=== PATIENT | male | born 1965 | race African-American/Black ===

== ENCOUNTER 2016-07-12 10:41 | Day surgery (SDC) | payer BC ==
[~2016-07-12 10:41] MED LIST: Lactated Ringers 1,000 ML IV SCH; Midazolam 1 MG/ML 2 ML SDV ONE; Propofol 200 MG/20 ML SDV ONE; fentaNYL 100 MCG/2 ML SDV ONE
--- NOTE | 2016-07-12 11:26 | PCM.PREANE ---
Preanesthetic Assessment - Anesthesia/Transfusion/Family Hx Anesthesia History: Prior Anesthesia Without Reaction Transfusion History: No Prior Transfusion(s) - Review of Systems General: No Symptoms Pulmonary: No Symptoms Cardiovascular: No Symptoms Gastrointestinal: No symptoms Neurological: No Symptoms Other: Reports: None - Physical Assessment NPO Status Date: 07/11/16 O2 Sat by Pulse Oximetry: 98 Respiratory Rate: 16 Vital Signs: Last Vital Signs Temp 97.2 C H 07/12/16 11:21 Pulse 56 L 07/12/16 11:21 Resp 16 07/12/16 11:21 BP 131/80 07/12/16 11:21 Pulse Ox 98 07/12/16 11:21 Height: 1.7 m Weight: 86.636 kg ASA Class: 2 Mental Status: Alert & Oriented x3 Airway Class: Mallampati = 1 Dentition: Reports: Normal Dentition ROM/Head Extension: Full Lungs: Clear to auscultation Cardiovascular: Regular Rate - Allergies Allergies/Adverse Reactions: Allergies Allergy/AdvReac Type Severity Reaction Status Date / Time acetaminophen Allergy muscle pain Verified 05/10/16 11:19 pollen extracts Allergy Sneezing Verified 05/10/16 11:19 dust Allergy Sneezing Uncoded 05/10/16 11:19 - Anesthesia Plan Pre-Op Medication Ordered: None - Acknowledgements Anesthesia Type Planned: MAC Pt an Appropriate Candidate for the Planned Anesthesia: Yes Alternatives and Risks of Anesthesia Discussed w Pt/Guardian: Yes Pt/Guardian Understands and Agrees with Anesthesia Plan: Yes PreAnesthesia Questionnaire - Past Health History Medical/Surgical History: Denies Medical/Surgical History HEENT History: Reports: Allergic rhinitis Cardiovascular History: Reports: Cardiomyopathy Other Cardiovascular History: "irregular heartbeat" Respiratory History: Reports: Bronchitis, recurrent Gastrointestinal History: Reports: GERD Musculoskeletal History: Reports: Back pain, chronic Hematologic History: Reports: Anemia - Infectious Disease History Infectious Disease History: Reports: Chicken pox - Past Surgical History Respiratory Surgical History: Reports: None - SUBSTANCE USE Smoking Status *Q: Never Smoker Days Per Week of Alcohol Use: 1 Number of Drinks Per Day: 2 Total Drinks Per Week: 2 Recreational Drug Use History: No Recreational Drug Type: Reports: Marijuana/Hashish - HOME MEDS Home Medications: Home Meds Sucralfate 1 tab PO TID 07/09/16 [History] - CURRENT (IN HOUSE) MEDS Current Meds: Current Medications Lactated Ringer's (Ringers, Lactated) 1,000 mls @ 125 mls/hr IV ASDIRECTED AMAN Discontinued Medications Fentanyl (Sublimaze) Confirm Administered Dose 100 mcg .ROUTE .STK-MED ONE Stop: 07/12/16 07:28 Midazolam HCl (Versed 1 Mg/Ml) Confirm Administered Dose 2 mg .ROUTE .STK-MED ONE Stop: 07/12/16 07:28 Propofol (Diprivan 20 Ml) Confirm Administered Dose 200 mg .ROUTE .STK-MED ONE Stop: 07/12/16 07:28 Preanesthetic Assessment - ANESTHESIA/TRANSFUSION/FAMILY HX Family History of Anesthesia Reaction: No - PHYSICAL ASSESSMENT O2 Sat by Pulse Oximetry: 98 RR: 16 Vital Signs: Last Vital Signs Temp 97.2 C H 07/12/16 11:21 Pulse 56 L 07/12/16 11:21 Resp 16 07/12/16 11:21 BP 131/80 07/12/16 11:21 Pulse Ox 98 07/12/16 11:21 Height: 1.7 m Weight: 86.636 kg - ALLERGIES Allergies/Adverse Reactions: Allergies Allergy/AdvReac Type Severity Reaction Status Date / Time acetaminophen Allergy muscle pain Verified 05/10/16 11:19 pollen extracts Allergy Sneezing Verified 05/10/16 11:19 dust Allergy Sneezing Uncoded 05/10/16 11:19
[2016-07-12] MEDS ORDERED: Propofol 200 MG/20 ML SDV ONE ×2 (11:41→12:13)
--- NOTE | 2016-07-12 12:40 | PCM.OPNOTE ---
- General Post-Op/Procedure Note Date of Surgery/Procedure: 07/12/16 Operative Procedure(s): EGD w/ biopsy. Colonoscopy Pre Op Diagnosis: Abdominal pain. Heartburn. Desire for colorectal cancer screening. Post-Op Diagnosis: Gastritis. No colonic neioplasia. Anesthesia Technique: MAC (ASA II) Primary Surgeon: Esequiel Brooks Condition: Good Free Text/Narrative:: Dictation [id number], and [id number]
[2016-07-12] MEDS ORDERED: Lactated Ringers 1,000 ML IV SCH (12:45)
--- NOTE | 2016-07-12 12:51 | PCM.POSTAN ---
POST ANESTHESIA ASSESSMENT - MENTAL STATUS Mental Status: alert, oriented - RESPIRATORY Respiratory Status: respiratory rate WNL, airway patent - CARDIOVASCULAR CV Status: pulse rate WNL, blood pressure stable - GASTROINTESTINAL GI Status: no symptoms - POST OP HYDRATION Hydration Status: adequate & stable
[2016-07-12 12:58] VITALS: BP 124/82
--- NOTE | 2016-07-12 13:33 | PCM48HPAN ---
Post Anesthesia Note - EVALUATION WITHIN 48HRS OF ANESTHETIC Vital Signs in Normal Range: Yes Patient Participated in Evaluation: Yes Respiratory Function Stable: Yes Airway Patent: Yes Cardiovascular Function Stable: Yes Hydration Status Stable: Yes Pain Control Satisfactory: Yes Nausea and Vomiting Control Satisfactory: Yes Mental Status Recovered: Yes
--- NOTE | 2016-07-12 18:30 | OR ---
SURGEON: Esequiel Brooks M.D. DATE OF PROCEDURE: 07/12/2016 OPERATION PERFORMED: Esophagogastroduodenoscopy with biopsy. ANESTHESIA: MAC. ASA CLASSIFICATION: II. PREOPERATIVE DIAGNOSIS: Chronic heartburn with epigastric pain. POSTOPERATIVE DIAGNOSIS: Gastritis. DESCRIPTION OF PROCEDURE: The patient was taken to the endoscopy room and positioned on the endoscopy table in the supine position. Time-out was called for appropriate identification of the patient and procedure. Monitored anesthesia care was provided. The bite-block was placed between the patient's teeth. The gastroscope was inserted through the bite-block and advanced without difficulty through the esophagus and stomach into the duodenum, where examination was carried out in a retrograde fashion. The duodenum shows no acute inflammatory changes or ulcerations. Stomach shows a mild gastritis. Antral biopsies were obtained to look for the presence of Helicobacter pylori. The gastroscope was retroflexed to visualize the proximal stomach which also shows moderate gastritis just below the GE junction. Separate biopsies of this area were obtained. The gastroscope was then straightened and slowly withdrawn carefully visualizing the greater and lesser curvatures. The stomach was aspirated as the scope was withdrawn. GE junction was well defined and shows no acute inflammatory changes. The esophagus demonstrated good contractility. No vocal cord lesions were identified as the scope was withdrawn. The gastroscope was then removed with the patient having tolerated the procedure well. Following colonoscopy, he was taken to recovery room. SEE MORA /[id number]
--- NOTE | 2016-07-12 18:42 | OR ---
SURGEON: Esequiel Brooks M.D. DATE OF PROCEDURE: 07/12/2016 OPERATION PERFORMED: Colonoscopy. ANESTHESIA: MAC. ASA CLASSIFICATION: II. PREOPERATIVE DIAGNOSIS: Desire for colorectal cancer screening. POSTOPERATIVE DIAGNOSIS: No evidence of neoplasia. DESCRIPTION OF PROCEDURE: With the patient having completed esophagogastroduodenoscopy, he was now positioned in the left lateral decubitus position. The colonoscope was inserted into the rectum and advanced with moderate difficulty to the cecum, where I was able to retroflex the colonoscope and visualize the ascending colon from below. The colonoscope was straightened and slowly withdrawn. The cecum, ascending colon, hepatic flexure, transverse colon, splenic flexure, and descending colon showed no tumors, polyps, diverticula, or evidence of angiodysplasia. Sigmoid colon demonstrates no diverticula. The colonoscope was withdrawn to the rectum and retroflexed to visualize the anal orifice from above. No tumors or polyps were seen and there were no acute hemorrhoidal changes. The patient tolerated the procedure well and was taken to recovery room in stable condition. SEE MORA /[id number]
== END 2016-07-12 14:15 | disposition home or self-care (01) ==
LOC: MW.SDS 10:41
PROVIDERS: ATTEND Surgery
PROC: 0DB68ZZ Excision of Stomach, Via Natural or Artificial Opening Endoscopic (ICD-10-PCS; principal; 2016-07-12)
PROC: 0DJD8ZZ Inspection of Lower Intestinal Tract, Via Natural or Artificial Opening Endoscopic (ICD-10-PCS; 2016-07-12)
DX: K29.50 Unspecified chronic gastritis without bleeding (principal); Z12.11 Encounter for screening for malignant neoplasm of colon; K21.9 Gastro-esophageal reflux disease without esophagitis; M62.08 Separation of muscle (nontraumatic), other site; Z87.891 Personal history of nicotine dependence
CPT/HCPCS: 43239; 45378; 88305; 88312; J2250; J3010; J7120; 00740; J2704

== ENCOUNTER 2017-02-12 16:33 | Emergency (ER) | payer BC ==
[2017-02-12] MEDS ORDERED: Sodium Chloride 0.9% 1,000 ML IV ONE (17:42)
[2017-02-12] MEDS ORDERED: Ketorolac 30 MG/ML SDV IVPUSH ONE (17:42)
[2017-02-12] MEDS ORDERED: Ondansetron 4 MG/2 ML SDV IVPUSH ONE (17:42)
--- NOTE | 2017-02-12 17:44 | EDM.PDOC ---
ED HPI GENERAL MEDICAL PROBLEM - General Chief Complaint: Gastrointestinal Problem Stated Complaint: STOMACH PAIN/VOMITING/HEADACHE Time Seen by Provider: 02/12/17 17:30 Source of Information: Reports: Patient History Limitations: Reports: No Limitations - History of Present Illness INITIAL COMMENTS - FREE TEXT/NARRATIVE: HISTORY AND PHYSICAL: History of present illness: [Patient comes to the emergency room complaining of nausea and vomiting and loose stools which began this morning. He feels very fatigued and has been unable to keep down any food and fluids today. He complains of a mild headache across the front of his forehead. He has not taken any medication for this. He denies muscle aches and pains. No pain in his neck. Denies fever and chills. No abdominal pain or difficulty urinating. No blood in his stools.] Review of systems: As per history of present illness and below otherwise all systems reviewed and negative. Past medical history: As per history of present illness and as reviewed below otherwise noncontributory. Surgical history: As per history of present illness and as reviewed below otherwise noncontributory. Social history: No reported history of drug or alcohol abuse. Family history: As per history of present illness and as reviewed below otherwise noncontributory. Physical exam: Gen.: Well-developed well-nourished dark skinned male in no acute distress. He is afebrile. VS are reviewed by me. HEENT: Atraumatic, normocephalic. Oral mucous membranes are pink and moist. TMs are pearly ortega and without effusion. Nares are patent. Neck supple, no lymphadenopathy. Lungs: Clear to auscultation, breath sounds equal bilaterally. Heart: S1S2, regular rate and rhythm. Abdomen: Bowel sounds are normoactive throughout. Abdomen is soft, nondistended , nontender. Negative for costovertebral tenderness. Pelvis: Stable nontender. Genitourinary: Deferred. Rectal: Deferred. Extremities: Atraumatic. Neurovascular unremarkable. Neuro: Awake, alert, oriented. Motor and sensory unremarkable throughout. Exam nonfocal. Therapeutics: [1 L normal saline, Toradol 30 mg IV, Zofran 4 mg IV] Impression: [Nausea and vomiting] Plan: [Patient's symptoms improved significantly after 1 L normal saline and medications. He requests to be discharged from the ER. He feels hungry and is ready to go home and go to bed. He has no concerns or further complaints upon discharge.] Definitive disposition and diagnosis as appropriate pending reevaluation and review of above. - Related Data Allergies Allergy/AdvReac Type Severity Reaction Status Date / Time pollen extracts Allergy Sneezing Verified 02/12/17 17:14 dust Allergy Sneezing Uncoded 05/10/16 11:19 Home Meds: Home Meds . [No Known Home Meds] 02/12/17 [History] Past Medical History - Past Health History Medical/Surgical History: Denies Medical/Surgical History HEENT History: Reports: Allergic Rhinitis Cardiovascular History: Reports: Arrhythmia Other Cardiovascular History: "irregular heartbeat" Respiratory History: Reports: Bronchitis, Recurrent Gastrointestinal History: Reports: GERD Musculoskeletal History: Reports: Back Pain, Chronic Hematologic History: Reports: Anemia - Infectious Disease History Infectious Disease History: Reports: Chicken Pox - Past Surgical History Head Surgeries/Procedures: Reports: None Cardiovascular Surgical History: Reports: Other (See Below) Social & Family History - Family History Family Medical History: Noncontributory - Tobacco Use Smoking Status *Q: Never Smoker - Caffeine Use Caffeine Use: Reports: None Caffeine Use Comment: 1drink occasionally - Alcohol Use Days Per Week of Alcohol Use: 1 Number of Drinks Per Day: 2 Total Drinks Per Week: 2 - Recreational Drug Use Recreational Drug Use: Yes Drug Use in Last 12 Months: Yes Recreational Drug Type: Reports: Marijuana/Hashish Recreational Drug Use Frequency: Socially ED ROS GENERAL - Review of Systems Review Of Systems: ROS reveals no pertinent complaints other than HPI. ED EXAM, GI/ABD - Physical Exam Exam: See Below Course - Vital Signs Last Recorded V/S: Last Vital Signs Temp 97.9 F 02/12/17 17:09 Pulse 78 02/12/17 17:09 Resp 18 02/12/17 17:09 BP 129/78 02/12/17 17:09 Pulse Ox 97 02/12/17 17:09 - Orders/Labs/Meds Meds: Medications Discontinued Medications Generic Name Dose Route Start Last Admin Trade Name Freq PRN Reason Stop Dose Admin Sodium Chloride 1,000 mls @ 999 mls/hr 02/12/17 17:42 02/12/17 18:07 Normal Saline IV 02/12/17 18:42 999 mls/hr STAT ONE Administration Ketorolac Tromethamine 30 mg 02/12/17 17:42 02/12/17 18:10 Toradol IVPUSH 02/12/17 17:43 30 mg ONETIME ONE Administration Ondansetron HCl 4 mg 02/12/17 17:42 02/12/17 18:08 Zofran IVPUSH 02/12/17 17:43 4 mg ONETIME ONE Administration Departure - Departure Time of Disposition: 19:20 Disposition: Home, Self-Care 01 Condition: Good Clinical Impression: Nausea & vomiting - Discharge Information Referrals: Bogdan Becerra MD [Primary Care Provider] - Forms: ED Department Discharge Additional Instructions: The following information is given to patients seen in the emergency department who are being discharged to home. This information is to outline your options for follow-up care. We provide all patients seen in our emergency department with a follow-up referral. The need for follow-up, as well as the timing and circumstances, are variable depending upon the specifics of your emergency department visit. If you don't have a primary care physician on staff, we will provide you with a referral. We always advise you to contact your personal physician following an emergency department visit to inform them of the circumstance of the visit and for follow-up with them and/or the need for any referrals to a consulting specialist. The emergency department will also refer you to a specialist when appropriate. This referral assures that you have the opportunity for follow-up care with a specialist. All of these measure are taken in an effort to provide you with optimal care, which includes your follow-up. Under all circumstances we always encourage you to contact your private physician who remains a resource for coordinating your care. When calling for follow-up care, please make the office aware that this follow-up is from your recent emergency room visit. If for any reason you are refused follow-up, please contact the [facility] emergency department at and asked to speak to the emergency department charge nurse. [facility] [address] [place] [id number] Establish care with a local provider at the clinic listed above. Push fluids, get plenty of rest. Return to ER as needed as discussed.
[2017-02-12 20:01] VITALS: BP 118/67
== END 2017-02-12 19:34 | disposition home or self-care (01) ==
LOC: MW.ED 16:33
DX: R11.2 Nausea with vomiting, unspecified (principal); Z86.2 Personal history of diseases of the blood and blood-forming organs and certain disorders involving the immune mechanism; Z91.048 Other nonmedicinal substance allergy status
CPT/HCPCS: 96361; 96374; 96375; 99284; J1885; J2405; J7040; 99283

== ENCOUNTER 2017-07-18 08:47 | Day surgery (SDC) | payer BC ==
--- NOTE | 2017-07-18 09:13 | PCM.PREANE ---
Preanesthetic Assessment - Anesthesia/Transfusion/Family Hx Anesthesia History: Prior Anesthesia Without Reaction Family History of Anesthesia Reaction: No Transfusion History: No Prior Transfusion(s) Intubation History: Unknown - Review of Systems General: No Symptoms Pulmonary: No Symptoms Cardiovascular: No Symptoms Gastrointestinal: Abdominal Pain Neurological: No Symptoms Other: Reports: None - Physical Assessment Height: 1.7 m Weight: 78.471 kg ASA Class: 2 Mental Status: Alert & Oriented x3 Airway Class: Mallampati = 2 Dentition: Reports: Normal Dentition (multiple veneers front (upper and lower)) Thyro-Mental Finger Breadths: 3 Mouth Opening Finger Breadths: 3 ROM/Head Extension: Full Lungs: Clear to Auscultation, Normal Respiratory Effort Cardiovascular: Regular Rate, Regular Rhythm - Allergies Allergies/Adverse Reactions: Allergies Allergy/AdvReac Type Severity Reaction Status Date / Time acetaminophen Allergy "muscle Verified 07/16/17 08:15 problems" pollen extracts Allergy Sneezing Verified 02/12/17 17:14 dust Allergy Sneezing Uncoded 05/10/16 11:19 - Blood Blood Available: No - Anesthesia Plan Pre-Op Medication Ordered: None - Acknowledgements Anesthesia Type Planned: MAC Pt an Appropriate Candidate for the Planned Anesthesia: Yes Alternatives and Risks of Anesthesia Discussed w Pt/Guardian: Yes Pt/Guardian Understands and Agrees with Anesthesia Plan: Yes PreAnesthesia Questionnaire - Past Health History Medical/Surgical History: Denies Medical/Surgical History HEENT History: Reports: Allergic Rhinitis Cardiovascular History: Reports: Arrhythmia, Other (See Below) (h/o CHF in possibly sec. to virral infection- noresidual disability from it) Other Cardiovascular History: "irregular heartbeat" Respiratory History: Reports: Bronchitis, Recurrent Gastrointestinal History: Reports: GERD Musculoskeletal History: Reports: Other (See Below) Other Musculoskeletal History: occasional back pain Neurological History: Reports: Migraines Hematologic History: Reports: Anemia - Infectious Disease History Infectious Disease History: Reports: Chicken Pox - Past Surgical History Head Surgeries/Procedures: Reports: None Cardiovascular Surgical History: Reports: Other (See Below) Other Cardiovascular Surgeries/Procedures: hx of coronary angiography without concomitant left heart catheterization Respiratory Surgical History: Reports: None GI Surgical History: Reports: Colonoscopy, EGD (over a year ago) - SUBSTANCE USE Smoking Status *Q: Former Smoker (quit in ) Days Per Week of Alcohol Use: 1 Number of Drinks Per Day: 2 Total Drinks Per Week: 2 Recreational Drug Use History: Yes Recreational Drug Type: Reports: Marijuana/Hashish - HOME MEDS Home Medications: Home Meds Loratadine [Claritin] 1 tab PO ASDIRECTED PRN 07/16/17 [History] Phenyleph/Pramoxin/Glycr/w.Pet [Hemorrhoidal Cream] 1 applic RECTAL ASDIRECTED 07/16/17 [History]
[2017-07-18] MEDS ORDERED: Lactated Ringers 1,000 ML IV SCH ×2 (09:45→11:00)
[2017-07-18] MEDS ORDERED: Lidocaine 2% 5 ML SDV ONE ×2 (10:17→10:20)
[2017-07-18] MEDS ORDERED: Propofol 200 MG/20 ML SDV ONE ×2 (10:17→10:34)
[2017-07-18] MEDS ORDERED: Midazolam 1 MG/ML 2 ML SDV ONE (10:17)
--- NOTE | 2017-07-18 10:50 | PCM.OPNOTE ---
- General Post-Op/Procedure Note Date of Surgery/Procedure: 07/18/17 Operative Procedure(s): Esophagogastroduodenoscopy with biopsy Pre Op Diagnosis: Progressive epigastric pain Post-Op Diagnosis: Acute gastritis with superficial ulcerations Anesthesia Technique: MAC (ASA II) Primary Surgeon: Esequiel Brooks Quantitative Analyst Marketing: Nic Clancy Condition: Good Free Text/Narrative:: Dictation [id number] CPT CODE 19852
--- NOTE | 2017-07-18 11:11 | PCM.POSTAN ---
POST ANESTHESIA ASSESSMENT - MENTAL STATUS Mental Status: Alert, Oriented - RESPIRATORY Respiratory Status: Respiratory Rate WNL, Airway Patent, O2 Saturation Stable - CARDIOVASCULAR CV Status: Pulse Rate WNL, Blood Pressure Stable - GASTROINTESTINAL GI Status: No Symptoms - POST OP HYDRATION Hydration Status: Adequate & Stable
--- NOTE | 2017-07-18 11:25 | PCM48HPAN ---
Post Anesthesia Note - EVALUATION WITHIN 48HRS OF ANESTHETIC Vital Signs in Normal Range: Yes Patient Participated in Evaluation: Yes Respiratory Function Stable: Yes Airway Patent: Yes Cardiovascular Function Stable: Yes Hydration Status Stable: Yes Pain Control Satisfactory: Yes Nausea and Vomiting Control Satisfactory: Yes Mental Status Recovered: Yes Resp Rate: 13 - COMMENTS/OBSERVATIONS Free Text/Narrative:: no anesthesia problems
--- NOTE | 2017-07-18 12:43 | OR ---
SURGEON: Esequiel Brooks M.D. DATE OF PROCEDURE: 07/18/2017 OPERATION PERFORMED: Esophagogastroduodenoscopy with biopsy. ROOM SERVICE SUPERVISOR: Dr. Clancy, PGY-2. ANESTHESIA: MAC. ASA CLASSIFICATION: II. PREOPERATIVE DIAGNOSIS: Progressive epigastric pain with heartburn. POSTOPERATIVE DIAGNOSIS: Acute gastritis with superficial gastric ulcers. DESCRIPTION OF PROCEDURE: The patient was taken to the endoscopy room and positioned on the endoscopy table in the supine position. Time-out was called for appropriate identification of the patient and procedure. Monitored anesthesia care was provided. A bite block was placed between the patient's teeth. The gastroscope was inserted through the bite block into the oropharynx and advanced without difficulty through the esophagus and stomach into the duodenum where examination was carried out in a retrograde fashion. The duodenum shows no acute inflammatory changes, ulcerations, or bleeding. Stomach showed a mild-to- moderate gastritis. Multiple superficial ulcers were noted. No deep ulcer craters are noted. There was no acute bleeding. Antral biopsies were obtained to look for the presence of Helicobacter pylori. The gastroscope was then retroflexed to visualize the proximal stomach. No lesions were identified proximally. GE junction was well defined, shows no acute inflammatory changes or hiatal hernia. The esophagus demonstrated good contractility. No mid or proximal lesions were identified. The vocal cords were briefly visualized as the scope was withdrawn and noted to move symmetrically. The patient tolerated the procedure well and was taken to recovery room in stable condition. SEE / ABBY /[id number]
[2017-07-18 12:46] VITALS: BP 108/72
== END 2017-07-18 11:45 | disposition home or self-care (01) ==
LOC: MW.SDS 08:47
PROVIDERS: ATTEND Surgery
DX: K25.9 Gastric ulcer, unspecified as acute or chronic, without hemorrhage or perforation (principal); K29.50 Unspecified chronic gastritis without bleeding; Z88.8 Allergy status to other drugs, medicaments and biological substances; K21.9 Gastro-esophageal reflux disease without esophagitis; Z87.891 Personal history of nicotine dependence; Z98.890 Other specified postprocedural states; Z79.899 Other long term (current) drug therapy
CPT/HCPCS: 43239; J2250; J7120; 00731; 88305; 88312; J2704

== ENCOUNTER 2017-10-11 15:28 | Emergency (ER) | payer BC ==
[2017-10-11 16:11] VITALS: BP 111/77
--- NOTE | 2017-10-11 17:16 | EDM.PDOC ---
ED HPI GENERAL MEDICAL PROBLEM - General Chief Complaint: Gastrointestinal Problem Stated Complaint: PT SPOKE TO NURSE Time Seen by Provider: 10/11/17 17:12 Source of Information: Reports: Patient History Limitations: Reports: No Limitations - History of Present Illness INITIAL COMMENTS - FREE TEXT/NARRATIVE: HISTORY AND PHYSICAL: []52-year-old gentleman presenting with 2 bouts of rectal bleeding today bright red History of Present Illness: []Patient has not had this problem before He does not have any pain Review of Systems: As per history of present illness and below otherwise all systems reviewed and negative. Past medical history: As per history of present illness and as reviewed below otherwise noncontributory. Surgical history: As per history of present illness and as reviewed below otherwise noncontributory. Social history: No reported history of drug or alcohol abuse. Family history: As per history of present illness and as reviewed below otherwise noncontributory. Physical exam: Alert and oriented answering questions appropriately in full sentences without any shortness of breath. He is nontoxic in appearance HEENT: Atraumatic, normocehpalic, pupils reactive, negative for conjunctival pallor or scleral icterus, mucous membranes moist, throat clear, neck supple, nontender, trachea midline. Lungs: Clear to auscultation, breath sounds equal bilaterally, chest non tender. Heart: S1S2, regular, negative for clicks, rubs, or JVD. Abdomen: Soft, nondistended, nontender. Negative for masses or hepatossplenmegaly. Negative for costovertebral tenderness. Pelvis: Stable nontender. Genitourinary: Deferred. Rectal: Small hemorrhoid is present not seen any blood from the hemorrhoid not inflamed. Digital exam did not identify any masses however stool was occult positive. Extremities: Atraumatic, negative for cords or calf pain. Neurovascular unremarkable. Neuro: Awake, alert, oriented. Cranial nerves II through XII unremarkable. Cerebellum unremarkable. Motor and sensory unremarkable throughout. Exam nonfocal. Diagnostics: []Occult card Therapeutics: [] Impression: []Rectal bleeding Plan: []Discharge Will need to follow-up with Dr. Brooks Return to the emergency department should symptoms worsen in their intensity or pain worsening as directed and discussed Definitive disposition and diagnosis as appropriate pending reevaluation and review of above. Onset: Today, Sudden - Related Data Allergies Allergy/AdvReac Type Severity Reaction Status Date / Time acetaminophen Allergy "muscle Verified 10/11/17 16:11 problems" pollen extracts Allergy Sneezing Verified 10/11/17 16:11 dust Allergy Sneezing Uncoded 10/11/17 16:11 Home Meds: Home Meds Loratadine [Claritin] 1 tab PO ASDIRECTED PRN 07/16/17 [History] Sucralfate 1 tab PO ASDIRECTED 10/11/17 [History] Past Medical History - Past Health History Medical/Surgical History: Denies Medical/Surgical History HEENT History: Reports: Allergic Rhinitis Cardiovascular History: Reports: Arrhythmia, Other (See Below) Other Cardiovascular History: "irregular heartbeat" Respiratory History: Reports: Bronchitis, Recurrent Gastrointestinal History: Reports: GERD Musculoskeletal History: Reports: Other (See Below) Other Musculoskeletal History: occasional back pain Neurological History: Reports: Migraines Hematologic History: Reports: Anemia - Infectious Disease History Infectious Disease History: Reports: Chicken Pox - Past Surgical History Head Surgeries/Procedures: Reports: None Cardiovascular Surgical History: Reports: Other (See Below) Other Cardiovascular Surgeries/Procedures: hx of coronary angiography without concomitant left heart catheterization Respiratory Surgical History: Reports: None GI Surgical History: Reports: Colonoscopy, EGD Social & Family History - Family History Family Medical History: Noncontributory - Tobacco Use Smoking Status *Q: Never Smoker - Caffeine Use Caffeine Use: Reports: None Caffeine Use Comment: 1drink occasionally - Recreational Drug Use Recreational Drug Use: No ED ROS GENERAL - Review of Systems Review Of Systems: ROS reveals no pertinent complaints other than HPI. ED EXAM, RENAL/ - Physical Exam Exam: See Below (See dictation) Course - Vital Signs Last Recorded V/S: Last Vital Signs Temp 36.2 C 10/11/17 16:07 Pulse 55 L 10/11/17 16:07 Resp 20 10/11/17 16:07 BP 111/77 10/11/17 16:07 Pulse Ox 99 10/11/17 16:07 Departure - Departure Time of Disposition: 17:14 Disposition: Home, Self-Care 01 Condition: Good Clinical Impression: Rectal bleed - Discharge Information Instructions: Rectal Bleeding, [id number] Referrals: PCP,None [Primary Care Provider] - Esequiel Brooks MD [Physician] - Additional Instructions: The following information is given to patients seen in the emergency department who are being discharged to home. This information is to outline your options for follow-up care. We provide all patients seen in our emergency department with a follow-up referral. The need for follow-up, as well as the timing and circumstances, are variable depending upon the specifics of your emergency department visit. If you don't have a primary care physician on staff, we will provide you with a referral. We always advise you to contact your personal physician following an emergency department visit to inform them of the circumstance of the visit and for follow-up with them and/or the need for any referrals to a consulting specialist. The emergency department will also refer you to a specialist when appropriate. This referral assures that you have the opportunity for followup care with a specialist. All of these measure are taken in an effort to provide you with optimal care, which includes your followup. Under all circumstances we always encourage you to contact your private physician who remains a resource for coordinating your care. When calling for followup care, please make the office aware that this follow-up is from your recent emergency room visit. If for any reason you are refused follow-up, please contact the [facility] emergency department at and asked to speak to the emergency department charge nurse. Discharge Will need to follow-up with Dr. Brooks Return to the emergency department should symptoms worsen in their intensity or pain worsening as directed and discussed
== END 2017-10-11 17:30 | disposition home or self-care (01) ==
LOC: MW.ED 15:28
DX: K62.5 Hemorrhage of anus and rectum (principal); Z88.8 Allergy status to other drugs, medicaments and biological substances
CPT/HCPCS: 99282

== ENCOUNTER 2019-04-29 13:44 | Emergency (ER) | payer BC ==
[2019-04-29] MEDS ORDERED: Azithromycin 100 MG/5 ML Susp 15 ML Bottle PO ONE (14:17)
[2019-04-29] MEDS ORDERED: cefTRIAXone 250 MG in Lidocaine 1% 1 ML IM ONE (14:17)
--- NOTE | 2019-04-29 14:21 | EDM.PDOC ---
ED [facility] GENERAL MEDICAL PROBLEM - General Chief Complaint: Genitourinary Problem Stated Complaint: UTI Time Seen by Provider: 04/29/19 14:19 Source of Information: Reports: Patient History Limitations: Reports: No Limitations - History of Present Illness INITIAL COMMENTS - FREE TEXT/NARRATIVE: Patient 54-year-old male with no significant past medical presenting with chief complaint of dysuria. Patient states he has had 2 weeks of dysuria which is gradually gotten worse. Patient states he noticed some discharge from his penis this morning and therefore came to the emergency department. Patient denies any fevers, chills, flank pain, blood in the urine. Patient reports being sexually active with 2 partners. Patient does not use protection. Patient has no other systemic symptoms and has no history of prior STI. In addition to that documented in the HPI above, the additional ROS was obtained : Constitutional: Denies fevers or chills Eyes: Denies vision changes ENMT: Denies sore throat CV: Denies chest pain Resp: Denies SOB GI: Denies vomiting or diarrhea : Denies painful urination MSK: Denies recent trauma Skin: Denies new rashes Neuro: Denies new numbness or tingling or weakness Endocrine: Denies unexpected weight loss Heme: Denies bleeding disorders I have reviewed the triage vital signs Const: Well nourished, well developed, appears stated age Eyes: PERRL, no conjunctival injection HENT: NCAT, Neck supple without meningismus CV: RRR, Warm, well-perfused extremities RESP: CTAB, Unlabored respiratory effort GI: soft, non-tender, non-distended, no masses MSK: No gross deformities appreciated : (KATY Cadet present) normal external exam. No testicular tenderness Skin: Warm, dry. No rashes Neuro: Alert, senior analyst programmer II-XII grossly intact. Sensation and motor function of extremities grossly intact. Psych: Appropriate mood and affect Assessment and plan: Patient 54-year-old male presenting with symptoms concerning for urethritis. Patient has risk factors for having sexual transmitted infections. Patient treated with azithromycin and ceftriaxone in the emergency department. Patient educated on safe sex practices. Patient given return precautions. All questions were asked and answered. Patient agrees to plan. - Related Data Allergies Allergy/AdvReac Type Severity Reaction Status Date / Time acetaminophen Allergy "muscle Verified 04/29/19 13:57 problems" pollen extracts Allergy Sneezing Verified 04/29/19 13:57 dust Allergy Sneezing Uncoded 04/29/19 13:57 Home Meds: Home Meds . [No Known Home Meds] 04/29/19 [History] Past Medical History - Past Health History Medical/Surgical History: Denies Medical/Surgical History HEENT History: Reports: Allergic Rhinitis Cardiovascular History: Reports: Arrhythmia, Other (See Below) Other Cardiovascular History: "irregular heartbeat" Respiratory History: Reports: Bronchitis, Recurrent Gastrointestinal History: Reports: GERD Musculoskeletal History: Reports: Other (See Below) Other Musculoskeletal History: occasional back pain Neurological History: Reports: Migraines Hematologic History: Reports: Anemia - Infectious Disease History Infectious Disease History: Reports: None - Past Surgical History Head Surgeries/Procedures: Reports: None Cardiovascular Surgical History: Reports: Other (See Below) Other Cardiovascular Surgeries/Procedures: hx of coronary angiography without concomitant left heart catheterization Respiratory Surgical History: Reports: None GI Surgical History: Reports: Colonoscopy, EGD Social & Family History - Family History Family Medical History: Noncontributory - Tobacco Use Smoking Status *Q: Never Smoker - Caffeine Use Caffeine Use: Reports: None Caffeine Use Comment: 1drink occasionally - Recreational Drug Use Recreational Drug Use: No ED ROS GENERAL - Review of Systems Review Of Systems: See Below ED EXAM, RENAL/ - Physical Exam Exam: See Below Course - Vital Signs Last Recorded V/S: Last Vital Signs Temp 36.6 C 04/29/19 13:58 Pulse 62 04/29/19 13:58 Resp 17 04/29/19 13:58 BP 121/66 04/29/19 13:58 Pulse Ox 97 04/29/19 13:58 - Orders/Labs/Meds Orders: Active Orders 24 hr Category Date Time Status CHLAMYDIA AND GONORRHEA BY TMA Stat Lab 04/29/19 14:16 Received CULTURE URINE [RM] Stat Lab 04/29/19 13:56 Received Labs: Laboratory Tests 04/29/19 Range/Units 13:56 Urine Color YELLOW Urine Appearance CLEAR Urine pH 6.0 (5.0-8.0) Ur Specific [place] 1.025 (1.001-1.035) Urine Protein NEGATIVE (NEGATIVE) mg/dL Urine Glucose (UA) NEGATIVE (NEGATIVE) mg/dL Urine Ketones NEGATIVE (NEGATIVE) mg/dL Urine Occult Blood NEGATIVE (NEGATIVE) Urine Nitrite NEGATIVE (NEGATIVE) Urine Bilirubin NEGATIVE (NEGATIVE) Urine Urobilinogen 0.2 (<2.0) EU/dL Ur Leukocyte Esterase TRACE H (NEGATIVE) Urine RBC 0-1 (0-2/HPF) Urine WBC 10-15 (0-5/HPF) Ur Epithelial Cells RARE (NONE-FEW) Urine Bacteria RARE (NEGATIVE) Meds: Medications Discontinued Medications Generic Name Dose Route Start Last Admin Trade Name Nickq PRN Reason Stop Dose Admin Azithromycin 1,000 mg 04/29/19 14:17 04/29/19 14:48 Zithromax 100 Mg/5 Ml Susp PO 04/29/19 14:18 Not Given ONETIME ONE Azithromycin 1,000 mg 04/29/19 14:47 04/29/19 14:55 Zithromax PO 04/29/19 14:48 1,000 mg ONETIME STA Administration Ceftriaxone Sodium Confirm 04/29/19 14:40 04/29/19 14:55 Rocephin Administered 04/29/19 14:41 250 mg Dose Administration 250 mg .ROUTE .STK-MED ONE Ceftriaxone Sodium 250 mg/ 1 mls @ 1 mls/sec 04/29/19 14:17 Lidocaine HCl IM 04/29/19 14:18 ONETIME ONE Lidocaine HCl Confirm 04/29/19 14:41 04/29/19 14:55 Xylocaine-Mpf 1% Administered 04/29/19 14:42 1 mls/hr Dose Administration 2 mls @ as directed .ROUTE .STK-MED ONE Departure - Departure Time of Disposition: 15:05 Disposition: Home, Self-Care 01 Clinical Impression: Urethritis - Discharge Information Instructions: Sexually Transmitted Disease, [id number], Urinary Tract Infection, Adult, [id number] Referrals: Bogdan Becerra MD [Primary Care Provider] - Forms: ED Department Discharge Additional Instructions: The following information is given to patients seen in the emergency department who are being discharged to home. This information is to outline your options for follow-up care. We provide all patients seen in our emergency department with a follow-up referral. The need for follow-up, as well as the timing and circumstances, are variable depending upon the specifics of your emergency department visit. If you don't have a primary care physician on staff, we will provide you with a referral. We always advise you to contact your personal physician following an emergency department visit to inform them of the circumstance of the visit and for follow-up with them and/or the need for any referrals to a consulting specialist. The emergency department will also refer you to a specialist when appropriate. This referral assures that you have the opportunity for follow-up care with a specialist. All of these measure are taken in an effort to provide you with optimal care, which includes your follow-up. Under all circumstances we always encourage you to contact your private physician who remains a resource for coordinating your care. When calling for follow-up care, please make the office aware that this follow-up is from your recent emergency room visit. If for any reason you are refused follow-up, please contact the [facility] Emergency Department at and asked to speak to the emergency department charge nurse. Sepsis Event Note - Evaluation Sepsis Screening Result: No Definite Risk - Focused Exam Vital Signs: Vital Signs Temp Pulse Resp BP Pulse Ox 04/29/19 13:58 36.6 C 62 17 121/66 97 Date Exam was Performed: 04/29/19 Time Exam was Performed: 15:05 - My Orders Last 24 Hours: My Active Orders 04/29/19 13:56 CULTURE URINE [RM] Stat 04/29/19 14:16 CHLAMYDIA AND GONORRHEA BY TMA Stat - Assessment/Plan Last 24 Hours: My Active Orders 04/29/19 13:56 CULTURE URINE [RM] Stat 04/29/19 14:16 CHLAMYDIA AND GONORRHEA BY TMA Stat
[2019-04-29] MEDS ORDERED: Lidocaine 1% 2 ML ONE (14:41)
[2019-04-29] MEDS ORDERED: Azithromycin 250 MG Tab PO STA (14:47)
[2019-04-29] MEDS: cefTRIAXone 250 MG Vial ONE ×2 (14:48→14:55)
[2019-04-29 15:28] VITALS: BP 120/72; PULSE 59
[2019-05-03 13:03] LABS: C.TRACHOMATIS BY TMA Positive (Negative); N.GONORRHOEAE BY TMA Negative (Negative)
== END 2019-04-29 15:31 | disposition home or self-care (01) ==
LOC: MW.ED 13:44
DX: N34.2 Other urethritis (principal); Z88.8 Allergy status to other drugs, medicaments and biological substances; Z91.048 Other nonmedicinal substance allergy status
CPT/HCPCS: 81001; 87086; 87491; 87591; 99283; A9270; J0696; J2001

== ENCOUNTER 2019-11-10 08:27 | Day surgery (SDC) | payer BC ==
[~2019-11-10 08:27] MED LIST changes: -Midazolam 1 MG/ML 2 ML SDV ONE; -Propofol 200 MG/20 ML SDV ONE; -fentaNYL 100 MCG/2 ML SDV ONE
--- NOTE | 2019-11-10 09:14 | PCM.PREANE ---
Preanesthetic Assessment - Anesthesia/Transfusion/Family Hx Anesthesia History: Prior Anesthesia Without Reaction Family History of Anesthesia Reaction: No Transfusion History: No Prior Transfusion(s) Intubation History: Unknown - Review of Systems General: No Symptoms Pulmonary: No Symptoms Cardiovascular: No Symptoms Neurological: No Symptoms Other: Reports: None - Physical Assessment NPO Status Date: 11/09/19 Height: 5 ft 7 in Weight: 83.007 kg ASA Class: 2 Mental Status: Alert & Oriented x3 Airway Class: Mallampati = 2 Dentition: Reports: Normal Dentition ROM/Head Extension: Full Lungs: Clear to Auscultation, Normal Respiratory Effort Cardiovascular: Regular Rate, Regular Rhythm - Allergies Allergies/Adverse Reactions: Allergies Allergy/AdvReac Type Severity Reaction Status Date / Time acetaminophen Allergy "muscle Verified 11/09/19 08:05 problems" pollen extracts Allergy Sneezing Verified 11/09/19 08:05 dust Allergy Sneezing Uncoded 11/09/19 08:05 - Blood Blood Available: No - Anesthesia Plan Pre-Op Medication Ordered: None - Acknowledgements Anesthesia Type Planned: General Anesthesia (tiva) Pt an Appropriate Candidate for the Planned Anesthesia: Yes Alternatives and Risks of Anesthesia Discussed w Pt/Guardian: Yes Pt/Guardian Understands and Agrees with Anesthesia Plan: Yes PreAnesthesia Questionnaire - Past Health History Medical/Surgical History: Denies Medical/Surgical History HEENT History: Reports: Allergic Rhinitis Cardiovascular History: Reports: Arrhythmia, Other (See Below) Other Cardiovascular History: "irregular heartbeat at times" Respiratory History: Reports: None Gastrointestinal History: Reports: GERD, Helicobacter Pylori Other Gastrointestinal History: chronic gastritis Genitourinary History: Reports: None Musculoskeletal History: Reports: Other (See Below) Other Musculoskeletal History: occasional back pain Neurological History: Reports: Migraines Psychiatric History: Reports: None Endocrine/Metabolic History: Reports: None Hematologic History: Reports: None Immunologic History: Reports: None Oncologic (Cancer) History: Reports: None Dermatologic History: Reports: None - Infectious Disease History Infectious Disease History: Reports: None - Past Surgical History Head Surgeries/Procedures: Reports: None HEENT Surgical History: Reports: None Cardiovascular Surgical History: Reports: Other (See Below) Other Cardiovascular Surgeries/Procedures: hx of coronary angiography without concomitant left heart catheterization Respiratory Surgical History: Reports: None GI Surgical History: Reports: Colonoscopy, EGD, Other (See Below) Other GI Surgeries/Procedures: hemorroidectomy Male Surgical History: Reports: None Endocrine Surgical History: Reports: None Neurological Surgical History: Reports: None Musculoskeletal Surgical History: Reports: None Oncologic Surgical History: Reports: None Dermatological Surgical History: Reports: None - SUBSTANCE USE Smoking Status *Q: Former Smoker Tobacco Use Within Last Twelve Months: No - HOME MEDS Home Medications: Home Meds Cetirizine HCl [Allergy Relief] 1 tab PO ASDIRECTED PRN 11/09/19 [History] Esomeprazole Magnesium 40 mg PO DAILY 11/09/19 [History] - CURRENT (IN HOUSE) MEDS Current Meds: Current Medications Lactated Ringer's (Ringers, Lactated) 1,000 mls @ 125 mls/hr IV ASDIRECTED AMAN
[2019-11-10] MEDS ORDERED: Propofol 200 MG/20 ML SDV ONE (09:18)
[2019-11-10] MEDS ORDERED: fentaNYL 100 MCG/2 ML SDV ONE (09:18)
--- NOTE | 2019-11-10 10:30 | PCM.OPNOTE ---
- General Post-Op/Procedure Note Date of Surgery/Procedure: 11/10/19 Operative Procedure(s): egd w bx Findings: [id number] Pre Op Diagnosis: abd pain and gerd Post-Op Diagnosis: Same Anesthesia Technique: Moderate Sedation Primary Surgeon: Humberto Wilkes Pathology: egd bx Complications: None Condition: Good
--- NOTE | 2019-11-10 10:52 | PCM48HPAN ---
Post Anesthesia Note - EVALUATION WITHIN 48HRS OF ANESTHETIC Vital Signs in Normal Range: Yes Patient Participated in Evaluation: Yes Respiratory Function Stable: Yes Airway Patent: Yes Cardiovascular Function Stable: Yes Hydration Status Stable: Yes Pain Control Satisfactory: Yes Nausea and Vomiting Control Satisfactory: Yes Mental Status Recovered: Yes Vital Signs: Last Vital Signs Temp 98.6 F 11/10/19 10:18 Pulse 58 L 11/10/19 10:35 Resp 15 11/10/19 10:35 BP 118/82 11/10/19 10:35 Pulse Ox 98 11/10/19 10:35
[2019-11-10 11:18] VITALS: BP 122/81; PULSE 70
--- NOTE | 2019-11-10 11:49 | OR ---
SURGEON: Humberto Wilkes MD DATE OF PROCEDURE: 11/10/2019 PREOPERATIVE DIAGNOSES: Abdominal pain and acid reflux. POSTOPERATIVE DIAGNOSES: Abdominal pain and acid reflux. PROCEDURE PERFORMED: Esophagogastroduodenoscopy with biopsy. DESCRIPTION OF PROCEDURE: EGD: The patient was taken to the endoscopy room, and with the DIE MACHINE OPERATOR, Diprivan was administered. A well-lubricated EGD scope was gently inserted through the oropharynx, down the esophagus, passing through the gastroesophageal junction, into the stomach. The mucosa was examined upon the passage. Any etiology will be noted. Once in the stomach, we continued to advance to the distal antrum, passed through the pylorus into the second portion of the duodenum. Again, the mucosa was examined for any abnormality and etiology. The scope was then retrieved back to the stomach and then retroflexed to look at the fundus of the stomach. If a biopsy was indicated, we will biopsy the antrum, body, and gastroesophageal junction. The air will be sucked out while the scope is retrieved to reduce the patient's discomfort. The patient tolerated the procedure well. There were no intraoperative complications. Dr. Wilkes was present through the whole procedure. Prior to surgery, a time-out had been called, the patient identified, procedure identified and antibiotic administered. FINDINGS: 1. The patient is easily sedated with DIE MACHINE OPERATOR and Diprivan, the patient is soundly snoring. 2. Oropharynx and proximal esophagus are free of infection, stricture, ulceration, or bleeding, none of those. When it is getting close to the GE junction at 40, the vein getting a little bit tortuous and prominent, you can call a varicosity, but they are not pulsating. No bleeding, no ulcer. Stomach rugae are normal in appearance. Antrum is a little bit inflamed. Duodenum is mildly inflamed, but there is no blood, no ulcer, no food particle, a little bit bile. Retroflexed look at the fundus of stomach, there is no hiatal hernia. Biopsy done at antrum, body, GE junction at 40 and sucked out the gas while scope pulling out. HAIM / ABBY /[id number]
--- NOTE | 2019-11-10 11:56 | PCM48HPAN ---
Post Anesthesia Note - EVALUATION WITHIN 48HRS OF ANESTHETIC Vital Signs in Normal Range: Yes Patient Participated in Evaluation: Yes Respiratory Function Stable: Yes Airway Patent: Yes Cardiovascular Function Stable: Yes Hydration Status Stable: Yes Pain Control Satisfactory: Yes Nausea and Vomiting Control Satisfactory: Yes Mental Status Recovered: Yes Vital Signs: Last Vital Signs Temp 97.9 F 11/10/19 10:40 Pulse 70 11/10/19 10:55 Resp 15 11/10/19 10:55 BP 122/81 11/10/19 10:55 Pulse Ox 98 11/10/19 10:55
== END 2019-11-10 11:00 | disposition home or self-care (01) ==
LOC: MW.SDS 08:27
PROVIDERS: ATTEND Surgery
DX: K29.50 Unspecified chronic gastritis without bleeding (principal); K29.80 Duodenitis without bleeding; K21.9 Gastro-esophageal reflux disease without esophagitis; Q39.8 Other congenital malformations of esophagus; Z87.891 Personal history of nicotine dependence; Z98.890 Other specified postprocedural states; Z88.6 Allergy status to analgesic agent; Z86.19 Personal history of other infectious and parasitic diseases; Z87.19 Personal history of other diseases of the digestive system
CPT/HCPCS: 43239; J2704; J3010; J7120; 88305; 88312